=== PATIENT | male | born 1970 | race Caucasian/White ===

== ENCOUNTER 2020-11-29 14:39 | Inpatient (IN) | payer SELFPAY ==
[2020-11-29] VITALS (14 sets, daily range): BP systolic 111–148; BP diastolic 45–79; PULSE 58–75; RESP 15–25; TEMP 36.6–36.8; O2SAT 92–98; BMI 38.7
--- NOTE | 2020-11-29 14:48 | XR_ITS ---
WS: [id number] Exam: XR chest 1V portable [id number] Date/Time of Exam: 11/29/2020 2:48 PM Reason For Exam: CP No priors. The lungs are fully expanded and clear. Normal cardiomediastinal structures and bony elements. No ple ural effusions. Monitoring leads superimpose the chest. XR/XR chest 1V portable [id number] IMPRESSION: 1. No acute cardiopulmonary finding.
--- NOTE | 2020-11-29 14:48 | ECG_ITS ---
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
[2020-11-29 14:59] LABS: Basophils # 0.1 10^3/uL (0.0-0.1); Basophils % 1.2 %; Eosinophils # 0.4 10^3/uL (0.0-0.8); Eosinophils % 4.2 %; Hematocrit 44.4 % (42.0-52.0); Hemoglobin 15.4 g/dL (11.7-16.6); Lymphocytes # 3.1 10^3/uL (0.8-4.8); Lymphocytes % 29.7 %; Mean Corpuscular HGB Conc 34.7 g/dL (30.0-36.0); Mean Corpuscular Hemoglobin 29.8 pg (28.0-34.0); Mean Corpuscular Volume 85.9 fL (80-94); Mean Platelet Volume 10.2 fL (7.4-10.4); Monocytes % 9.5 %; Neutrophils # 5.66 10^3/uL (1.8-7.7); Neutrophils % 55.1 %; Nucleated Red Blood Cells % 0 %; Platelet Count 293 10^3/cmm (130-400); Red Blood Count 5.17 10^6/uL (4.1-5.3); Red Cell Distribution Width 12.9 % (12.1-15.1); White Blood Count 10.3 10^3/uL (4.0-10.0)
[2020-11-29] MEDS: nitroglycerin 1 gm/inch oint Pkt 1 INCH TOPICAL (15:28)
[2020-11-29 15:32] LABS: Troponin(5th) Baseline 17 ng/L (0-15)
[2020-11-29 16:24] LABS: Troponin 5 2HR 101.3 ng/L (0-15); Troponin 5 2HR Delta 84.3 ABS# (0-10)
[2020-11-29 16:29] LABS: Alanine Aminotransferase 22 U/L (0-41); Albumin Level 3.9 g/dL (3.5-5.2); Alkaline Phosphatase 55 IU/L (40-130); Aspartate Amino Transferase 20 U/L (0-40); Blood Urea Nitrogen 11 mg/dL (6-20); Calcium 8.5 mg/dL (8.5-10.5); Carbon Dioxide 22 mmol/L (22-29); Chloride 105 mmol/L (98-107); Globulin 2.6 g/dL (1.3-4.6); Glomerular Filtration Rate 103.2 mL/min (90-130); Glucose 94 mg/dL (65-115); Lipase 25 U/L (13-60); NT Pro B Type Natriuretic Pept 104 pg/mL (0-125); Osmolality Calculated 285 mOsm/kg (285-295); Sodium 138 mmol/L (136-145); Total Bilirubin 0.4 mg/dL (0.15-1.2); Total Protein 6.5 g/dL (6.6-8.7)
[2020-11-29 16:31] LABS: Anion Gap 14.7 (5-19); Potassium 3.7 mmol/L (3.5-5.1)
--- NOTE | 2020-11-29 16:48 | ECG_ITS ---
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: : 1970 Requested By: Stefania Clifton I Order Number: [id number] Reading MD: NIA MCCARTHY Measurements Intervals [place] Rate: 58 P: 53 MT: 174 QRS: 17 QRSD: 100 T: 25 QT: 394 QTc: 387 Interpretive Statements SINUS BRADYCARDIA NONSPECIFIC T-WAVE ABNORMALITY Compared to ECG 11/29/2020 14:41:02 T-wave abnormality now present Sinus rhythm no longer present Myocardial infarct finding no longer present Electronically Signed On 11-29-2020 21:24:43 CDT by NIA MCCARTHY [id number]
[2020-11-29] MEDS: ticagrelor 90 mg Tablet 180 MG PO (18:08)
[2020-11-29] MEDS: metoprolol succinate ER (24 HR) 25 mg Tablet 12.5 MG PO (18:09)
[2020-11-29] MEDS: atorvastatin 40 mg Tablet 80 MG PO (18:10)
[2020-11-29] MEDS: enoxaparin 120 mg/0.8 mL Syringe 110 MG SUBCUT (18:11)
--- NOTE | 2020-11-29 20:16 | PC.NURSE ---
PATIENT TRANSPORTED VIA WHEELCHAIR FROM ED AND ARRIVED AT 1999. PATIENT ABLE TO TRANSFER SELF TO BED WITH NO ASSISTANCE. PATIENT AND SIGNIFICANT OTHER ORIENTED TO ROOM.
--- NOTE | 2020-11-29 20:44 | P.HP_ITS ---
Providers/Chief Complaint Admitting Physician: Arnel Rodriguez Primary Care Provider: Thomas Estrada MD Chief Complaint: STEMI History of Present Illness Serge Singer is a 50 year old male past medical history significant for continuous tobacco abuse hard of hearing obesity apart from it, he does not have any other comorbidity, he was brought to ER after alerting STEMI pager. I looked at the EKG which was not convincing for ST elevation therefore STEMI was aborted. Patient cardiac markers troponin T came back > 70. He was ruled in for non-ST elevation NM. I have detailed discussion with the patient according to him for the past couple of days he was having off-and-on chest pain, today while lifting boxes all of a sudden it hit him badly when it does not subside he called EMS. Currently he is chest pain-free. He was given Lovenox and loaded with Brilinta aspirin and statin. I will also add beta-melissa. We will admit him to CSU. I am planning to proceed with left heart cath in the morning. Have detailed discussion with the patient regarding all risk benefit and already for the procedure. He understand the risk for major minor bleed urgent emergent b ypass surgery stroke arrhythmia and hematoma and infection. He would like to proceed with it. He denies any prior history of bleeding and contraindication for dual antiplatelet therapy. Medications/Allergies Home Medications Medication Instructions Recorded Confirmed Last Taken Type gabapentin 300 mg PO BEDTIME PRN 11/29/20 11/29/20 11/28/20 History Allergies Allergy/AdvReac Type Severity Reaction Status Date / Time No Known Allergies Allergy Verified 11/29/20 13:34 PFSH Acute PFSH: Social History (Updated 11/29/20 @ 14:52 by Tres Bradley RN) Smoking and tobacco status: current every day smoker cigarettes Packs smoked per day: 0.5 Alcohol intake: never Substance/Drug Use: current Substance/Drug use frequency: few times a month Substance/Drug use type: Marijuana Vitals/I&O/Wt Last Vital Signs Temp 97.8 F 11/29/20 14:43 Pulse 64 11/29/20 19:00 Resp 23 H 11/29/20 19:00 BP 129/72 11/29/20 19:00 Pulse Ox 98 11/29/20 19:00 Weight last 48 hrs Weight 240 lb Physical Exam Narrative: EXAM NARRATIVE: GENERAL: Patient is alert, awake and oriented x3. NECK: No jugular vein distension. HEENT: No cyanosis. No icterus. No pallor. HEART: Regular S1 and S2. No murmur, rub or gallop. LUNGS: Clear to auscultate bilaterally. ABDOMEN: Soft, nontender and nondistended. Positive bowel sounds. No guarding, rebound or tenderness. CENTRAL NERVOUS SYSTEM: Grossly nonfocal. EXTREMITIES: Lower extremities without edema bilaterally. Data : 11/29/20 13:36 11/29/20 15:36 A&P Assessment and plan (1) Non-ST elevation NM (NSTEMI): As above patient will be admitted to CSU will trend troponin. He will be monitored on the telemetry. We will treat him as per ACS protocol continue aspirin statin beta-melissa. He has been loaded with Brilinta. We will proceed with left heart cath in the morning Status: Acute (2) Tobacco abuse: Advised to quit smoking. Patient has not given me the answer. Status: Acute Attestations Medical Necessity Statement*: Patient require continuation hospitalization for above defined care. Coding Level of Care Code New Pt Acute Double Reamer Operator for Chg Fwd Patient Type New History Detailed Exam Detailed Medical Decision Making Moderate Complexity Diagnoses Non-ST elevation NM (NSTEMI) I21.4 Tobacco abuse Z72.0
--- NOTE | 2020-11-29 20:48 | ECG_ITS ---
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 Measurements Intervals [place] Rate: 58 P: 55 WA: 198 QRS: 18 QRSD: 96 T: 124 QT: 380 QTc: 376 Interpretive Statements SINUS BRADYCARDIA ST DEVIATION AND MODERATE T-WAVE ABNORMALITY, CONSIDER LATERAL ISCHEMIA [-0.1+ mV T WAVE IN I/aVL/V5/V6] Compared to ECG 11/29/2020 17:09:48 Possible ischemia now present T-wave abnormality still present Electronically Signed On 11-30-2020 17:49:33 CDT by Kavya Qureshi M.D. [id number]
[2020-11-30] VITALS (69 sets, daily range): BP systolic 109–172; BP diastolic 60–99; PULSE 58–86; RESP 13–35; TEMP 36.6–36.8; O2SAT 92–98
--- NOTE | 2020-11-30 00:29 | ED_ITS ---
HPI - Arrhythmia/Palpitations General: Chief Complaint: Arrhythmia/Palpitations Stated Complaint: STEMI Time Seen by Provider: 11/29/20 14:48 Source: patient, EMS and old records reviewed Mode of arrival: EMS Limitations: no limitations History of Present Illness: HPI narrative: This is a 50 year old male with no prior cardiac history and presents to the ED with chest pain from his PCP's office. He was lifting heavy materials and developed sudden onset of chest pain that did not initially resolve. He then went to his PCP's office and an EKG done was concerning for a STEMI and was sent to the ED to be evaluated. Chest pain was sudden, retrosternal and radiated to the left chest and shoulder. He was nauseous, SOB, and diaphoretic. He was given 2 nitroglycerin tablets and heparin bolus in the ambulance. He is currently chest pain free. He was called a STEMI alert in the clinic but on arrival to the ED, the elevations have resolved. Duration: now resolved Context: occurred during exertion Associated symptoms: Reports nausea and short of breath; Deny anxiety, cough, diaphoresis, muscle cramps, paresthesias, pre-syncope, sense of impending doom, syncope or vomiting Review of Systems General: Reports: 10 or more systems reviewed and unremarkable except in HPI and below Const: Denies: diaphoresis Card: Denies: syncope or pre-syncope GI: Reports: nausea; Denies: vomiting Musc: Denies: muscle cramps Psych: Denies: anxiety [facility] ED PFSH: Medical History (Updated 12/16/20 @ 09:07 by Stefania Clifton MD, [facility] Coronary artery disease Hypertension NSTEMI (non-ST elevated myocardial infarction) Family History Father Diabetes Stroke Family history of premature coronary artery disease Brother Family history of premature coronary artery disease Unknown Family history of premature coronary artery disease Mother Cancer Other CAD (coronary artery disease) Social History Smoking and tobacco status: current every day smoker cigarettes Packs smoked per day: 0.5 Alcohol intake: never Physical Exam Const: COMMON NORMALS: no acute distress, average body habitus, patient oriented x3, no limitations, healthy appearing, alert and well nourished HENMT: COMMON NORMALS: normocephalic, atraumatic and moist oral mucous membranes HEAD & SCALP: normocephalic and atraumatic Neck/C-Spine: COMMON NORMALS: no meningeal signs and no JVD Chest: COMMONS NORMALS: normal inspection of the chest and normal palpation of entire chest wall Resp: COMMON NORMALS: normal respiratory effort, No retractions, No use of accessory muscles, clear to auscultation bilaterally and percussion normal AUSCULTATION: clear to auscultation bilaterally PERCUSSION: percussion normal Cardio: COMMON NORMALS: no JVD, regular rate, regular rhythm, S1 normal heart sound present, S2 normal heart sound present, No gallops present (Cardio), No clicks present (Cardio), No murmurs present (Cardio), No rub (Cardio) and Peripheral pulses 2+ throughout RATE: regular rate RHYTHM: regular rhythm HEART SOUNDS: S1 normal heart sound present and S2 normal heart sound present PERIPHERAL PULSES: Peripheral pulses 2+ throughout GI: COMMON NORMALS: Normal to inspection, nondistended, normoactive bowel sounds present, Soft to palpation, non-tender, No hepatosplenomegaly present, no masses and no bruits PALPATION: Yes Soft to palpation and Yes No hepatosplenomegaly present Neuro: COMMON NORMALS: patient oriented x3 SENSORIUM/ORIENTATION: Yes alert MENINGEAL SIGNS: Yes no meningeal signs Course Consultations: Consultation #1: Discussed the patient with Dr. Rodriguez, hospitalist and he kindly accepted patient to his service. Time: 17:11 Consultation #2: Discussed the patient with Dr. Crandall, pelletizer. He agrees that this is not a STEMI on EKG and should be managed as a case of non STEMI and should be given ASA, lovenox, artovastatin, metoprolol. He called back later and said that since this is a primary cardiac issue he will admit the patient and the hospitalist does not need to admit him Time: 17:00 Vital Signs: Vital signs: Vital Signs Temperature 97.7 F 12/01/20 16:23 Pulse Rate 79 12/01/20 16:23 Respiratory Rate 17 12/01/20 16:23 Blood Pressure 154/91 12/01/20 16:23 Pulse Oximetry 99 12/01/20 16:23 MDM - Arrhythmia/Palpitations MDM Narrative: Medical decision making narrative: 50 year old male who was brought to the ED with concerns for a STEMI. He developed sudden onset chest pain, diaphoresis, SOB. In the ED a STEMI was ruled out. However he had significantly elevated high sensitivity troponin with a significant delta and is managed as a case of NSTEMI and will be admitted to the hospital under the care of the pelletizer. Medical Records: Attestation: I reviewed the patient's medical records. Lab Data: Attestation: I reviewed the patient's lab results. Labs: Lab Results 11/29/20 11/29/20 11/29/20 Range/Units 13:36 13:36 13:36 WBC 10.3 H (4.0-10.0) 10^3/ uL RBC 5.17 (4.1-5.3) 10^6/u L Hgb 15.4 (11.7-16.6) g/dL Hct 44.4 (42.0-52.0) % MCV 85.9 (80-94) fL MCH 29.8 (28.0-34.0) pg MCHC 34.7 (30.0-36.0) g/dL RDW 12.9 (12.1-15.1) % Plt Count 293 (130-400) 10^3/c mm MPV 10.2 (7.4-10.4) fL Neut % (Auto) 55.1 % Lymph % (Auto) 29.7 % [place] % (Auto) 9.5 % Eos % (Auto) 4.2 % Baso % (Auto) 1.2 % Neut # (Auto) 5.66 (1.8-7.7) 10^3/u L Lymph # (Auto) 3.1 (0.8-4.8) 10^3/u L [place] # (Auto) 1.0 H (0.2-0.9) 10^3/u L Eos # (Auto) 0.4 (0.0-0.8) 10^3/u L Baso # (Auto) 0.1 (0.0-0.1) 10^3/u L Nucleated RBC % (a uto) 0 % Nucleated RBCs # 0.0 /100WBC Sodium Cancelled Potassium Cancelled Chloride Cancelled Carbon Dioxide Cancelled Anion Gap Cancelled BUN Cancelled Creatinine Cancelled GFR Calculation Cancelled Glucose Cancelled Calculated Osmolal ity Cancelled Calcium Cancelled Total Bilirubin Cancelled AST Cancelled ALT Cancelled Alkaline Phosphata se Cancelled Troponin T Baselin e 17 H (0-15) ng/L Troponin T 120 Min [place] (0-15) ng/L Delta Troponin T (0-10) ABS# NT-Pro-B Natriuret Pep Cancelled Total Protein Cancelled Albumin Cancelled Globulin Cancelled Lipase Cancelled 11/29/20 11/29/20 Range/Units 15:36 15:36 WBC (4.0-10.0) 10^3/ uL RBC (4.1-5.3) 10^6/u L Hgb (11.7-16.6) g/dL Hct (42.0-52.0) % MCV (80-94) fL MCH (28.0-34.0) pg MCHC (30.0-36.0) g/dL RDW (12.1-15.1) % Plt Count (130-400) 10^3/c mm MPV (7.4-10.4) fL Neut % (Auto) % Lymph % (Auto) % [place] % (Auto) % Eos % (Auto) % Baso % (Auto) % Neut # (Auto) (1.8-7.7) 10^3/u L Lymph # (Auto) (0.8-4.8) 10^3/u L [place] # (Auto) (0.2-0.9) 10^3/u L Eos # (Auto) (0.0-0.8) 10^3/u L Baso # (Auto) (0.0-0.1) 10^3/u L Nucleated RBC % (a uto) % Nucleated RBCs # /100WBC Sodium 138 Potassium 3.7 Chloride 105 Carbon Dioxide 22 Anion Gap 14.7 BUN 11 Creatinine 0.8 GFR Calculation 103.2 Glucose 94 Calculated Osmolal ity 285 Calcium 8.5 Total Bilirubin 0.4 AST 20 ALT 22 Alkaline Phosphata se 55 Troponin T Baselin e (0-15) ng/L Troponin T 120 Min [place] 101.3 H (0-15) ng/L Delta Troponin T 84.3 H* (0-10) ABS# NT-Pro-B Natriuret Pep 104 Total Protein 6.5 L Albumin 3.9 Globulin 2.6 Lipase 25 Imaging Data^: CXR: Attestation: I personally reviewed and interpreted this imaging study as follows: Radiologist's impression: [id number] [place], [place] [id number] ReportSigned Patient: Stephanie Singer #: [id number]: 1970Acct#:[id number]/Sex: 50 / MADM Date: 11/29/20Loc: ERRoom/Bed:Attending Dr: Ordering Provider/Ordering MD: Stefania Clifton MD, [facility] Date of Service: 11/29/20 Procedure(s): XR chest 1V portable [id number] Accession Number(s): [id number] Report Number: [id number] WS: [id number] Exam: XR chest 1V portable [id number] Date/Time of Exam: 11/29/2020 2:48 PM Reason For Exam: CP No priors. The lungs are fully expanded and clear. Normal cardiomediastinal structures and bony elements. No pleural effusions. Monitoring leads superimpose the chest. XR/XR chest 1V portable [id number] IMPRESSION: 1. No acute cardiopulmonary finding. Dictated By:Mila Raphael By:Mila Raphael Date/Time:11/29/20 1510DD/ 1509 EKG Data^: EKG 1: Attestation: I personally reviewed and interpreted this EKG as follows: EKG interpretation date: 11/29/20 EKG interpretation time: 17:09 Prior EKG tracings: not available for review Interpretation: sinus bradycardia HR 58 bpm normal axis no ST changes. Other EKG comments: Chest X-Ray 11/29/20 14:48 IMPRESSION: 1. No acute cardiopulmonary finding. EKG 2: EKG interpretation date: 11/29/20 EKG interpretation time: 22:01 Interpretation: sinus bradycardia HR [address] changes No significant changes from earlier. Other EKG comments: Chest X-Ray 11/29/20 14:48 IMPRESSION: 1. No acute cardiopulmonary finding. Discharge Plan Discharge Patient Disposition: Admitted As Inpatient Admit Provider: Modesta Crandall Clinical Impression: Non-ST elevated myocardial infarction (non-STEMI) Condition: Stable Discharge Diet: Cardiac Coding Level of Care Code ED Reference Investigator for Mario Cazares
[2020-11-30] MEDS: diphenhydrAMINE 25 mg Capsule 50 MG PO (05:02)
[2020-11-30] MEDS: sodium chloride 0.9% 1,000 ML 50 ML IV (05:02)
--- NOTE | 2020-11-30 05:07 | XACV_ITS ---
Exam Room: [facility] [place] Ht: 168 cm Wt: 109 kg BSA: 2.30 m2 Gender: Male : 1970 Any Known Allergies: No known allergies Exam Priority: Routine Procedure(s): Procedure Description: Diagnostic procedure Procedure Description: PCI procedure Procedure Description: Drug Eluting Coronary Stent Procedure Description: PTCA Procedure Description: Miscellaneous Procedure Description: ACT Procedure Description: Coronary Angiography Diagnostic Findings * LM has 0% stenosis. * CX has 0% stenosis. * RCA has 0% stenosis. * Proximal Left Anterior Descending Coronary Artery: Severe 90% stenosis, ЕКАТЕРИНА: 3 flow. * mLAD: Moderate 50% stenosis, ЕКАТЕРИНА: 3 flow. * 1st Diagonal Coronary Artery: Severe 90% stenosis, ЕКАТЕРИНА: 3 flow. * First Obtuse Marginal Branch Segment: Severe 75% stenosis, ЕКАТЕРИНА: 3 flow. * Coronary angiography shows right dominance. Interventional Findings * Proximal Left Anterior Descending Coronary Artery: 90% stenosis treated with MDT R GODWIN 3.0X18 ОЛЬГА and MDT NC EUPHORA RX 3.91W89TB BALLOON. 0% residual stenosis, ЕКАТЕРИНА: 3 flow. * 1st Diagonal Coronary Artery: 90% stenosis treated with AB TREK 2.50X12 RX BALLOON. 20% residual stenosis, ЕКАТЕРИНА: 3 flow. * First Obtuse Marginal Branch Segment: 75% stenosis treated with MDT R GODWIN 2.0X15 ОЛЬГА. 0% residual stenosis, ЕКАТЕРИНА: 3 flow. Conclusions 1. There is severe coronary artery disease with one vessel disease. 2. Proximal Left Anterior Descending Coronary Artery was treated with Drug Eluting Stent and Balloon. 3. 1st Diagonal Coronary Artery was treated with Balloon. 4. First Obtuse Marginal Branch Segment was treated with Drug Eluting Stent. Recommendations * Continue current medical management and risk factor modification. Pressures Phase:Rest AO : 118 / 89 ( 104 ) @ 5:53:00 AM 147 / 72 ( 101 ) @ 5:56:00 AM Clinical Evaluation EBL: 5mL-10mL Procedural Details Pre-Procedure Time Out. Identified patient by full name and date of as verbalized by the patient/guarantor. Does the consent match the physician's order: Yes. Accurate & Complete Informed Consent: Yes. Inpatient/Outpatient History & Physical on Chart: Yes. If H&P is completed, is and addenduem needed: Yes; If yes, is the addendum complete: N/A. Visualize and Verify Site with Patient/Guarantor: N/A. Relevant Radiology Images available: Yes. Pre-op teaching completed and patient verbalized understanding. The risks, benefits, and alternatives of sedation and/or procedure were discussed by physician. The patient agrees to continue. Procedure started. Correct patient, site and procedure confirmed by cath team. PERRLA. Strong, equal hand finish molder bilaterally. Lungs clear x 5 lobes. IV Site on Arrival: 18 gauge in the left anticubital. IV Site on Arrival: 20 gauge in the right hand. IV Fluids: 0.9% NaCl at KVO. 0 mL infused prior to laboratory mechanical technician. Pre Procedural Pulses: right dorsalis pedis was 3+. Pre Procedural Pulses: left dorsalis pedis was 3+. Pre Procedural Pulses: bilateral posterior tibial was 3+. Pre Procedural Pulses: bilateral radial was 3+. Oxygen started at 2liters/min via nasal canula. right groin was prepped with chloroprep then draped in the usual sterile fashion. right radial was prepped with chloroprep then draped in the usual sterile fashion. Baseline sample Acquired. HR: 71 BPM. Physician notified. Equipment: 6F - Radial. Cardiac Cath Pack. ACIST Manifold Kit Model BT 2000. Heparinized Saline (2 units/mL), 1000 mL bag. Physician arrived. Physician scrubbed in. Immediate Pre-Procedure Time Out. Correct Patient: Yes; Correct Procedure: Yes; Correct Site: Yes; Correct Patient Position: Yes; Correct Supplies: Yes; Dried Flammable Prep: Yes; Blood Products Available: N/A;. Lidocaine 1% infiltrated to the right radial. Arterial access obtained. A 5 bahraini TIG catheter in over wire. Multiple views taken of right coronary artery. Catheter redirected to the LCA. Multiple views taken of left coronary artery. Catheter out. Inventory is CRD 6 FR XB 3.5 GUIDE. 6 bahraini XB 3.5 guide catheter was inserted over the wire. [place] guidewire was advanced through the guide catheter to lesion in the prox LAD. Inventory is Satellogic [place] XT .014 190cm Str. Guidewire. [place] guidewire was advanced through the guide catheter to lesion in the diaganol. Balloon inserted to lesion in the diaganol. Inflation number : 1 A TREK 2.50X12 RX BALLOON was prepped and advanced across the 1st Diag , then inflated to 16 RICKY for 0:10 seconds. Balloon out. GWEN Maki was relieved by Pawel Varma RRT as monitoring person. Inflation Number : 1 A NARCISA Rodriguez GODWIN 3.0X18 ОЛЬГА -Lot Number# [id number] exp date 08/19/2022 was prepped and advanced across the Prox LAD. The stent was deployed at 16 RICKY for 0:22 seconds. Stent balloon out over wire. Wire from diagonal removed. ACT drawn. Results 197 seconds. Therapeutic limits - pre-heparin administration 90-150 seconds and monitoring heparin during a vascular procedure >250 seconds. Inflation number : 2 A NARCISA WALTER EUPHORA RX 3.71D81VO BALLOON was prepped and advanced across the Prox LAD , then inflated to 16 RICKY for 0:18 seconds. Balloon out. Results checked. [place] repositioned to mid Circ. Inflation Number : 1 A NARCISA Rodriguez GODWIN 2.0X15 ОЛЬГА -Lot Number# [id number] exp date 08/19/2022 was prepped and advanced across the 1st Ob Zakiya. The stent was deployed at 14 RICKY for 0:19 seconds. Inflation number: 2 The stent balloon was then re-inflated across the 1st Ob Zakiya to 18 RICKY for 0:15 seconds. Stent balloon out over wire. Results checked. Wire out. Guide catheter out. ACT drawn. Results 276 seconds. Therapeutic limits - pre-heparin administration 90-150 seconds and monitoring heparin during a vascular procedure >250 seconds. Physician scrubbed out. A TR Band was successful obtaining hemostatsis at the Right Radial artery insertion site. TR band placed. Hemostasis obtained. Post Procedure: Pulses reassessed and unchanged. PERRLA. Strong, equal hand finish molder bilaterally. No VTE prophylaxis required. Contrast type used: Omnipaque 300 mgI/mL, 500 mL bottle. PCI Indication: NSTE. Post-op diagnosis: NSTEMI. Complications: none. Medication's Wasted: Lidocaine 1% = 15 mL. Medication's Wasted: Nitro = 49.8 mg. Medication's Wasted: Heparin = 1000 units. Total IV fluids: 78 mL. Estimated blood loss: 5mL-10mL. Procedure completed. Patient transferred by wheelchair to 1st floor. Access Site Site: Right Radial artery Sheath Size: 6 Fr Hemostasis Method: TR Band Hemostasis Success: Successful Procedure Medications Start: 6:08 AM Stop: 6:08 AM Medication: Versed Amount: 1 mg Route: I.V. Start: 6:08 AM Stop: 6:08 AM Medication: Fentanyl Amount: 50 mcg Route: I.V. Start: 6:21 AM Stop: 6:21 AM Medication: Versed Amount: 1 mg Route: I.V. Start: 6:21 AM Stop: 6:21 AM Medication: Fentanyl Amount: 50 mcg Route: I.V. Start: 6:23 AM Stop: 6:23 AM Medication: Nitrogylcerin Amount: 200 mcg Route: I.A. Start: 6:26 AM Stop: 6:26 AM Medication: Heparin Amount: 5000 units Route: I.V. Start: 6:34 AM Stop: 6:34 AM Medication: Heparin Amount: 2000 units Route: I.V. Start: 6:57 AM Stop: 6:57 AM Medication: Heparin Amount: 3000 units Route: I.V. I, the attending physician, have reviewed and verified all procedure medications. Yes, all medications given per verbal order History/Risk Factors Hypertension: No Dyslipidemia: No Peripheral Arterial Disease (PAD): No Myocardial Infarction (MO): No Obesity: No Renal Disease: No Tobacco Use: Current/Recent(w/in 1 year) Prior Interventions PCI: No CABG: No Valve Surgery: No Report Signatures Finalized by Modesta Crandall MD on 12/12/2020 06:40 PM
--- NOTE | 2020-11-30 05:18 | PC.NURSE ---
PRE-OP PREP PATIENT PREPARED FOR CARDIAC CATHETERIZATION PER PROTOCOL. FINAL QUESTIONS ANSWERED AND PATIENT STATES HE UNDERSTANDS AND DENIES ANY FURTHER QUESTIONS.
--- NOTE | 2020-11-30 07:13 | W.PM.OPSUD ---
Surgery/Procedure H&P Update DATE OF PROCEDURE: November 30, 2020 DATE H&P PERFORMED: 11/29/20 H&P UPDATE INFORMATION: I have reviewed H&P completed within last 30 days, I have examined patient prior to procedure and No changes to prior documentation PREOP DIAGNOSIS: NSTEMI PLANNED PROCEDURE: Operation Date: 11/30/20 06:00 Proposed Procedures p Cardiac Catheterization(Not Applicable) - Modesta Crandall MD PATIENT REASSESSED PRIOR TO SEDATION, WITH NO CHANGE NOTED: Yes PHYSICAL EXAM: alert, oriented x 3, clear to auscultation bilaterally and regular rate & rhythm AIRWAY EVAL/ANESTHESIA PLAN: ASA II, Risks, benefits & alternatives of sedation and/or procedure discussed and Patient agrees to continue as planned
--- NOTE | 2020-11-30 12:16 | USCV_ITS ---
Serge Singer Age: 50 Gender: M : 1970 Exam Date: 11/30/2020 08:52 Ordering Phys: Modesta Crandall MD ([email or web address]) Technologist: Veena Rogers [place] [facility] [place]: [place]STEMI BP: 135 / 86 HR: 65 Rhythm: Sinus Technical Quality: Fair MEASUREMENTS (Male / Female) Normal Values 2D ECHO LV Diastolic Diameter PLAX 2.7 cm 4.2 - 5.9 / 3.9 - 5.3 cm LV Systolic Diameter PLAX 1.7 cm LV Chamber Size 3.4 cm IVS Diastolic Thickness 1.6 cm 0.6 - 1.0 / 0.6 - 0.9 cm IVS Systolic Thickness 2.3 cm LVPW Diastolic Thickness 2.4 cm 0.6 - 1.0 / 0.6 - 0.9 cm LVPW Systolic Thickness 2.5 cm RV Chamber Size 3.5 cm LVOT Diameter 2.0 cm LV Ejection Fraction 2D Teich 68.2 % LV Ejection Fraction MOD 2C 55.7 % LV Ejection Fraction 2C AL 56.9 % LA Diameter 3.0 cm LA Width 3.4 cm LA Height 3.5 cm RA Width 3.4 cm RA Height 4.2 cm Aorta at Sinotubular Diameter 3.0 cm M-MODE LV Diastolic Diameter MM 4.0 cm 4.2 - 5.9 / 3.9 - 5.3 cm LV Systolic Diameter MM 2.1 cm LV Ejection Fraction MM Teich 78.3 % IVS Diastolic Thickness MM 0.9 cm 0.6 - 1.0 / 0.6 - 0.9 cm IVS Systolic Thickness MM 1.5 cm LVPW Diastolic Thickness MM 1.1 cm 0.6 - 1.0 / 0.6 - 0.9 cm LVPW Systolic Thickness MM 1.6 cm Aortic Annulus Diameter 3.1 cm LA Ao Ratio MM 1.0 MV E Point Septal Separation 0.6 cm DOPPLER AV Peak Velocity 148.7 cm/s LVOT Peak Velocity 115.0 cm/s AV Area Cont Eq vti 3.2 cm squared AV Area Cont Eq pk 2.5 cm squared MV Area PHT 3.0 cm squared Mitral E to A Ratio 0.9 MV E' Velocity 41.0 cm/s Mitral E to MV E' Ratio 6.3 Mitral E to LV E' Lateral Ratio 5.7 Mitral E to LV E' Septal Ratio 7.2 TR Peak Velocity 144.0 cm/s TR Peak Gradient 8.3 mmHg TV Peak E Velocity 64.0 cm/s Right Atrial Pressure 3.0 mmHg Pulmonary Artery Systolic Pressu 11.3 mmHg PV Peak Velocity 82.0 cm/s RV Acceleration Time 0.1 s RV Ejection Time 0.4 s RV AcT/ET 0.3 FINDINGS Left Ventricle Normal left ventricular cavity size. Normal left ventricular systolic function. No regional wall motion abnormalities. Left ventricular ejection fraction is estimated at 60 %. Grade I/IV diastolic dysfunction (abnormal relaxation filling pattern), normal to mildly elevated filling pressures. Right Ventricle The right ventricle is normal in size and function. Right Atrium The right atrium is normal in size. Left Atrium The left atrium is normal in size. Mitral Valve Structurally normal mitral valve without significant stenosis or prolapse. There is no mitral regurgitation. Aortic Valve Structurally normal aortic valve without significant sclerosis or stenosis. There is no aortic regurgitation. Tricuspid Valve Structurally normal tricuspid valve without significant stenosis or regurgitation. Pulmonary artery systolic pressure is normal. Pulmonic Valve Structurally normal pulmonic valve without significant stenosis. There is no pulmonic regurgitation. Pericardium Normal pericardium without effusion. Aorta Normal ascending aorta dimension. CONCLUSIONS 1-Normal left ventricular cavity size. Normal left ventricular systolic function. No regional wall motion abnormalities. Left ventricular ejection fraction is estimated at 60 %. Grade I/IV diastolic dysfunction (abnormal relaxation filling pattern), normal to mildly elevated filling pressures. 2-No significant valve abnormalities. 3-There is no pericardial effusion. 4-Pulmonary artery systolic pressure is within normal limits. 5-Right atrial pressure is around 5 mm of mercury. 6-There are no prior echocardiogram studies to compare. Modesta Crandall MD (Electronically Signed) Final Date: 11 Dec 2020 18:10 S
--- NOTE | 2020-11-30 12:22 | PC.NURSE ---
At 10 am patient was fully awake and alert. Began removing air from TR band 3 ml every 15 minutes unyil all 16 ml were removed. No oozing was noted. After removal site was cleaned with alcohol swabs and dressed with a 2x2 gauze and clear rop dressing.l
[2020-11-30] MEDS: ticagrelor 90 mg Tablet PO ×2 (13:59→18:05)
[2020-11-30] MEDS: temazepam 15 mg Capsule PO (20:40)
--- NOTE | 2020-11-30 20:42 | PC.NURSE ---
Upon bedside report, there are no IV fluids running.
--- NOTE | 2020-11-30 21:26 | PM.PN ---
Subjective Subjective: Interval history: S/p mid LAD PCI for bifurcating lesion. Ostial moderate size and caliber diagonal branch was dilated with balloon angioplasty followed by mid LAD stent placement. Stent was postdilated with noncompliant balloon. Obtuse marginal branch was also treated with single drug-eluting stent for mid significant 80% stenosis. Patient tolerated procedure well and transferred to CSU. Vitals/I&O/Wt Last Vital Signs Temp 98 F 11/30/20 19:23 Pulse 71 11/30/20 19:23 Resp 21 H 11/30/20 19:23 BP 138/94 11/30/20 19:23 Pulse Ox 98 11/30/20 19:23 11/30/20 11/30/20 11/30/20 06:59 14:59 22:59 Intake Total 740 / 740 480 / 1220 Output Total 420 / 420 Balance 320 / 320 480 / 800 Weight last 48 hrs Weight 240 lb Physical Exam Narrative: EXAM NARRATIVE: GENERAL: Patient is alert, awake and oriented x3. NECK: No jugular vein distension. HEENT: No cyanosis. No icterus. No pallor. HEART: Regular S1 and S2. No murmur, rub or gallop. LUNGS: Clear to auscultate bilaterally. ABDOMEN: Soft, nontender and nondistended. Positive bowel sounds. No guarding, rebound or tenderness. CENTRAL NERVOUS SYSTEM: Grossly nonfocal. EXTREMITIES: Lower extremities without edema bilaterally. Const: COMMON NORMALS: alert Resp: COMMON NORMALS: clear to auscultation bilaterally AUSCULTATION: clear to auscultation bilaterally Neuro: SENSORIUM/ORIENTATION: Yes alert Data : 11/29/20 13:36 11/29/20 15:36 A&P Assessment and plan (1) Non-ST elevation AR (NSTEMI): Status post PCI to mid LAD and obtuse marginal continue aspirin statin Brilinta beta-melissa Echo pending pending further plan will advise as per progress of the Status: Acute (2) Tobacco abuse: Advised to quit smoking. Patient has not given me the answer. 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
[2020-12-01] VITALS (9 sets, daily range): BP systolic 154–169; BP diastolic 69–92; PULSE 58–79; RESP 12–26; TEMP 36.5–36.6; O2SAT 96–99
[2020-12-01 04:49] LABS: Basophils # 0.1 10^3/uL (0.0-0.1); Basophils % 0.8 %; Eosinophils # 0.5 10^3/uL (0.0-0.8); Eosinophils % 4.5 %; Hematocrit 45.9 % (42.0-52.0); Hemoglobin 15.8 g/dL (11.7-16.6); Lymphocytes # 2.2 10^3/uL (0.8-4.8); Lymphocytes % 18.7 %; Mean Corpuscular HGB Conc 34.4 g/dL (30.0-36.0); Mean Corpuscular Hemoglobin 30.3 pg (28.0-34.0); Mean Corpuscular Volume 88.1 fL (80-94); Mean Platelet Volume 9.5 fL (7.4-10.4); Monocytes # 1.1 10^3/uL (0.2-0.9); Neutrophils # 7.96 10^3/uL (1.8-7.7); Neutrophils % 66.6 %; Nucleated Red Blood Cells % 0 %; Platelet Count 272 10^3/cmm (130-400); Red Blood Count 5.21 10^6/uL (4.1-5.3); Red Cell Distribution Width 12.9 % (12.1-15.1)
[2020-12-01 05:05] LABS: Anion Gap 12.7 (5-19); Blood Urea Nitrogen 12 mg/dL (6-20); Calcium 8.8 mg/dL (8.5-10.5); Carbon Dioxide 26 mmol/L (22-29); Chloride 104 mmol/L (98-107); Glomerular Filtration Rate 103.2 mL/min (90-130); Glucose 95 mg/dL (65-115); Osmolality Calculated 288 mOsm/kg (285-295); Potassium 3.7 mmol/L (3.5-5.1); Sodium 139 mmol/L (136-145)
--- NOTE | 2020-12-01 08:25 | PC.CHAP ---
Pastoral Care Encounter/Spiritual Assessment Type of Contact [] Declined keeper head visit [] Patient/Family/Request visit [] Outpatient visit [] Follow-up visit [] Physician referral [] Code/Alert [x] Routine visit [] Staff referral [] Actively dying [] Patient sleeping [] Family support [] [] Out of room [] Palliative care [] [] Receiving care in room [] Pre-surgical visit [] Trauma [] Long length of stay [] ICU visit [] Other: Relational/Emotional Strength [x] Patient feels connected with others/family/visitors/staff [] Distress [] Loneliness/isolation [] Abandonment Spirituality of Patient [x] Person of A[place] [x] Attends Spiritism of their [place] [x] Believes in Prayer [] Reads Bible or Confucianist materials [] There are Spiritual issues to be addressed Industrial Engineering Intern Interventions [x] Prayer [x] Active listening [x] Non-anxious presence [x] Spiritual/emotional support [] Crisis/trauma care [] Spiritual counseling [] Bereavement support [] Provided bereavement packet [] Provided Bible/devotional materials [] Provided toy/stuffed animal, coloring book to patient or family member [] Provided Communion [] Anointing/[place] [] Salvation [x] Completed spiritual assessment [] Other: Impact on Illness or Injury [] Angry [] Fearful [] Anxious [] Often cries [] Exhaustion [] Unable to work [] Unable to attend gnosticist [] Unable to walk/stand [] Unable to read [] Unable to drive [] Unable to eat/drink [] Unable to sleep [] Unable to be with family [] Patient intubated [] Other: Summary Pt's SO called several times while keeper head visited. Pt hopes to be released today but doctor is trying some new meds so uncertain. He is a person of ainsley and requested prayer. Time spent with patient 10m
--- NOTE | 2020-12-01 08:28 | PC.NURSE ---
Received orders from Dr. Crandall to stop brillinta and give plavix 600mg ONCE
[2020-12-01] MEDS: clopidogrel 300 mg Tablet 600 MG PO (09:31)
--- NOTE | 2020-12-01 11:45 | P.DS_ITS ---
Discharge Providers Date of Admission: 11/29/20 17:20 Date of Discharge: December 01, 2020 Attending Provider at Admission: Modesta Crandall MD Attending Provider at Discharge: Modesta Crandall MD Primary Care Provider: Thomas Estrada MD Diagnoses at Discharge Discharge Diagnosis (1) Non-ST elevation UT (NSTEMI): Status: Resolved (2) Tobacco abuse: Status: Acute Reason for Visit Reason for Visit: STEMI Hospital Course Hospital Course 50-year-old male admitted with non-ST elevation UT underwent angiogram found to have significant LAD and bifurcating diagonal disease along with obtuse marginal. LAD and obtuse marginal were treated with drug-eluting stent post PCI patient was observed in the CSU. His medicine were optimized echocardiogram showed normal ejection fraction around 60%. He was loaded with Brilinta. His medicine include aspirin statin beta-melissa and PAT inhibitor. According to patient he cannot afford Brilinta so he was switched after loading with 600 mg of Plavix to 75 mg of Plavix daily Physical Exam Narrative: EXAM NARRATIVE: GENERAL: Patient is alert, awake and oriented x3. NECK: No jugular vein distension. HEENT: No cyanosis. No icterus. No pallor. HEART: Regular S1 and S2. No murmur, rub or gallop. LUNGS: Clear to auscultate bilaterally. ABDOMEN: Soft, nontender and nondistended. Positive bowel sounds. No guarding, rebound or tenderness. CENTRAL NERVOUS SYSTEM: Grossly nonfocal. EXTREMITIES: Lower extremities without edema bilaterally. Const: COMMON NORMALS: alert Resp: COMMON NORMALS: clear to auscultation bilaterally AUSCULTATION: clear to auscultation bilaterally Neuro: SENSORIUM/ORIENTATION: Yes alert Discharge Data Data Completed and Pending: Completed Studies During Hospitalization Category Date Time Status XR chest 1V rebecca ble [id number] Stat Exams 11/29/20 14:48 Completed Pending at discharge Category Date Time Status [facility] request for service Routin e Exams 11/30/20 05:07 Taken CV echo complete* [id number] Routine Ultrasound 11/30/20 12:16 Taken Labs from last 24 hours 12/01/20 12/01/20 04:01 04:01 WBC 12.0 H RBC 5.21 Hgb 15.8 Hct 45.9 MCV 88.1 MCH 30.3 MCHC 34.4 RDW 12.9 Plt Count 272 MPV 9.5 Neut % (Auto) 66.6 Lymph % (Auto) 18.7 [place] % (Auto) 9.0 Eos % (Auto) 4.5 Baso % (Auto) 0.8 Neut # (Auto) 7.96 H Lymph # (Auto) 2.2 [place] # (Auto) 1.1 H Eos # (Auto) 0.5 Baso # (Auto) 0.1 Nucleated RBC % (a uto) 0 Nucleated RBCs # 0.0 Sodium 139 Potassium 3.7 Chloride 104 Carbon Dioxide 26 Anion Gap 12.7 BUN 12 Creatinine 0.8 GFR Calculation 103.2 Glucose 95 Calculated Osmolal ity 288 Calcium 8.8 Vitals: Last Vital Signs Temp 97.7 F 12/01/20 07:07 Pulse 79 12/01/20 07:07 Resp 17 12/01/20 07:07 BP 154/91 12/01/20 07:07 Pulse Ox 99 12/01/20 07:07 Discharge Plan Discharge Patient Disposition: Home Condition: Stable Prescriptions: New aspirin [Adult Aspirin Regimen] 81 mg tablet,delayed release (DR/EC) 81 mg PO DAILY Qty: 90 RF: 3 atorvastatin 40 mg tablet 40 mg PO DAILY Qty: 30 RF: 3 clopidogrel 75 mg tablet 75 mg PO DAILY Qty: 90 RF: 4 lisinopril 2.5 mg tablet 2.5 mg PO DAILY Qty: 30 RF: 3 metoprolol succinate 25 mg capsule,sprinkle,ER 24hr 25 mg PO DAILY Qty: 30 RF: 3 No Action atorvastatin 40 mg tablet 40 mg PO DAILY RF: 0 clopidogrel 75 mg tablet 75 mg PO DAILY RF: 0 aspirin 81 mg tablet,delayed release (DR/EC) 81 mg PO DAILY RF: 0 metoprolol succinate 25 mg tablet extended release 24 hr 50 mg PO DAILY RF: 0 lisinopril 2.5 mg tablet 2.5 mg PO DAILY RF: 0 gabapentin 300 mg Capsule 300 mg PO BEDTIME PRN (Reason: pain) RF: 0 Discharge Orders: Discharge Order (Routine); Ordered 12/01/20 Ordered By: Modesta Crandall Referrals: Modesta Crandall MD [Physician] - 6 Weeks (YOU HAVE A FOLLOW UP APPOINTMENT WITH DR. CRANDALL ON SundayJanuary AT 330PM. IF YOU HAVE ANY QUESTIONS OR NEED TO RESCHEDULE PLEASE CALL [phone].) Laura Adams, ALVA [Nurse Practitioner] - 7-10 days (YOU HAVE A FOLLOW UP APPOINTMENT WITH LAURA ON SundayDecember AT 0995. IF YOU HAVE ANY QUESTIONS OR NEED TO RESCHEDULE PLEASE CALL [phone] ) Discharge Diet: Cardiac Patient Instructions: Metoprolol (By mouth), Lisinopril (By mouth), Aspirin (By mouth), Atorvastatin (By mouth), Clopidogrel (By mouth), Myocardial Infarction (DC), Post Angiogram Home Care Instructions, Post Heart Attack Stoplight Activity Restrictions/Additional Instructions: Please continue taking clopidogrel and aspirin for at least 1 year after that we will reassess it. Follow-up with Ms. Laura Adams cardiology nurse practitioner in 7 days, follow-up with Dr. Crandall in 6 to 8 weeks Discharge Attestations Time Spent in Discharge Care*: greater than 30 min Specific Discharge Activities: educating patient Quality Metrics Clinical Quality Measures During this hospital stay, did patient experience: None Coding Level of Care Code Established Pt Acute Chg FW DC note Patient Type Established History Detailed Exam Detailed Medical Decision Making Moderate Complexity Diagnoses Non-ST elevation UT (NSTEMI) I21.4 Tobacco abuse Z72.0
--- NOTE | 2020-12-01 16:24 | PC.NURSE ---
Patient education was provided regarding new medications, homecare instructions, and post heart attack information. Patient IV in the R wrist was removed and was intact. Patient and had no questions or concerns. Patient was wheeled out via wheelchair.
--- NOTE | 2020-12-06 18:48 | PC.RESP ---
Smoking Cessation information sent to patient.
== END 2020-12-01 16:26 | disposition home or self-care (01) | DRG 247 ==
LOC: ER 17:24 → CSU 18:02
PROVIDERS: Admitting Provider Internal Medicine Cardiovascular Disease; Emergency Provider Family Medicine; PCP Family Medicine; Visit Provider Internal Medicine Cardiovascular Disease
PROC: 027135Z Dilation of Coronary Artery, Two Arteries with Two Drug-eluting Intraluminal Devices, Percutaneous Approach (ICD-10-PCS; principal; 2020-11-30 06:00)
PROC: 027135Z Dilation of Coronary Artery, Two Arteries with Two Drug-eluting Intraluminal Devices, Percutaneous Approach (ICD-10-PCS; 2020-11-30 06:00)
DX: I21.4 Non-ST elevation (NSTEMI) myocardial infarction (principal); F17.210 Nicotine dependence, cigarettes, uncomplicated; H91.90 Unspecified hearing loss, unspecified ear; E66.09 Other obesity due to excess calories; Z68.38 Body mass index [BMI] 38.0-38.9, adult; F12.90 Cannabis use, unspecified, uncomplicated; I25.10 Atherosclerotic heart disease of native coronary artery without angina pectoris; Z79.02 Long term (current) use of antithrombotics/antiplatelets
CPT/HCPCS: 36415; 71045; 80048; 80053; 83690; 83880; 84484; 85025; 85347; 93005; 93306; 93454; 96372; 99285; C1725; C1769; C1874; C1887; C1894; C9600; C9601; J1644; J1650; J2250; J3010; J3490; J7030; Q9967

== ENCOUNTER → 2020-12-08 11:41 | Outpatient (BNVA) | payer SELFPAY | PROVIDERS: PCP Family Medicine; Visit Provider Nurse Practitioner Family | DX: I21.4 Non-ST elevation (NSTEMI) myocardial infarction (principal); I25.10 Atherosclerotic heart disease of native coronary artery without angina pectoris | CPT/HCPCS: 80048 ==

== ENCOUNTER → 2021-04-06 14:42 | Outpatient (BNVA) | payer OTHER, SELFPAY | PROVIDERS: PCP Nurse Practitioner Family; Visit Provider Nurse Practitioner Family | DX: J22 Unspecified acute lower respiratory infection (principal); Z11.52 Encounter for screening for COVID-19 | CPT/HCPCS: 87635 ==

== ENCOUNTER 2021-10-14 10:27 | Outpatient (CLI) | payer OTHER, SELFPAY ==
[2021-10-14 11:00] LABS: Basophils # 0.1 10^3/uL (0.0-0.1); Basophils % 1.2 %; Eosinophils # 0.5 10^3/uL (0.0-0.8); Hematocrit 46.3 % (42.0-52.0); Hemoglobin 15.8 g/dL (11.7-16.6); Lymphocytes # 2.9 10^3/uL (0.8-4.8); Lymphocytes % 25.8 %; Mean Corpuscular HGB Conc 34.1 g/dL (30.0-36.0); Mean Corpuscular Hemoglobin 30.1 pg (28.0-34.0); Mean Corpuscular Volume 88.2 fl (80-94); Mean Platelet Volume 9.3 fL (7.4-10.4); Monocytes # 1.2 10^3/uL (0.2-0.9); Monocytes % 10.9 %; Neutrophils # 6.53 10^3/uL (1.8-7.7); Neutrophils % 57.8 %; Nucleated Red Blood Cells % 0 %; Platelet Count 288 10^3/cmm (130-400); Red Blood Count 5.25 10^6/uL (4.1-5.3); Red Cell Distribution Width 13.2 % (12.1-15.1); White Blood Count 11.3 10^3/uL (4.0-10.0)
[2021-10-14 11:27] LABS: Alanine Aminotransferase 23 U/L (0-41); Albumin Level 4.3 g/dL (3.5-5.2); Alkaline Phosphatase 71 IU/L (40-130); Anion Gap 14.6 (5-19); Aspartate Amino Transferase 17 U/L (0-40); Blood Urea Nitrogen 6 mg/dL (6-20); Calcium 9.8 mg/dL (8.5-10.5); Carbon Dioxide 28 mmol/L (22-29); Chloride 100 mmol/L (98-107); Globulin 3.3 g/dL (1.3-4.6); Glomerular Filtration Rate 102.7 mL/min (90-130); Glucose 127 mg/dL (65-115); Osmolality Calculated 287 mOsm/kg (285-295); Potassium 3.6 mmol/L (3.5-5.1); Sodium 139 mmol/L (136-145); Total Bilirubin 0.3 mg/dL (0.15-1.2); Total Protein 7.6 g/dL (6.6-8.7)
[2021-10-14 12:36] LABS: Hepatitis B Core AB, Total Non-Reactive (Nonreactive); Hepatitis B Surface Antigen Non-Reactive (Nonreactive); Hepatitis C Virus Antibody Non-Reactive (Nonreactive)
[2021-10-17 12:17] LABS: Quantiferon Mitogen >10.00 IU/mL; Quantiferon Nil 0.09 IU/mL; Quantiferon Plus TB1 <0.00 IU/mL; Quantiferon Plus TB2 <0.00 IU/mL; Quantiferon TB Gold NEGATIVE (NEGATIVE)
== END 2021-10-14 10:28 | disposition home or self-care (01) ==
LOC: LAB 10:29
PROVIDERS: PCP Nurse Practitioner Family; Visit Provider Internal Medicine
DX: M25.50 Pain in unspecified joint (principal)
CPT/HCPCS: 80053; 85025; 86480; 86704; 86803; 87340

== ENCOUNTER → 2022-05-03 09:32 | Outpatient (BNVA) | payer OTHER, SELFPAY | PROVIDERS: PCP Nurse Practitioner Family; Visit Provider Internal Medicine | DX: M25.50 Pain in unspecified joint (principal); Z79.899 Other long term (current) drug therapy | CPT/HCPCS: 80053; 85025; 85651; 86140 ==

== ENCOUNTER 2023-02-27 08:51 | Outpatient (CLI) | payer OTHER, SELFPAY ==
[2023-02-27] VITALS (7 sets, daily range): BP systolic 114–140; BP diastolic 68–88; PULSE 66–71; RESP 12–16; TEMP 37.1; O2SAT 96–97; BMI 43.9
--- NOTE | 2023-02-27 09:00 | XACV_ITS ---
Ht: 165 cm Wt: 120 kg BSA: 2.41 m2 Gender: Male : 1970 Any Known Allergies: No known allergies Exam Priority: Routine Procedure(s): Procedure Description: Diagnostic procedure Procedure Description: PCI procedure Procedure Description: Left Heart Catheterization Procedure Description: Drug Eluting Coronary Stent Procedure Description: PTCA Procedure Description: Miscellaneous Procedure Description: ACT Procedure Description: Coronary Angiography Procedure Description: Pressure Wire Diagnostic Cath Status: Elective Diagnostic Findings * INDICATION: 52-year-old man with past medical history of hypertension, CAD with prior LAD and OM stent has been having worsening anginal symptoms. The symptoms are worsening over the last 2 to 3 months. Also has been having dyspnea on exertion. Plan for coronary angiogram with possible percutaneous coronary intervention. * Left Main has no significant disease. * Circumflex has mild luminal irregularities. * Mid Left Anterior Descending: obstructive 60- 70% stenosis, ЕКАТЕРИНА: 3 flow. * Right Coronary Artery has no disease. * Coronary angiography shows right dominance. PCI Status: Elective PCI Indication: Other Interventional Findings * PROCEDURE DETAIL: We engaged left main artery with XB 3.0 guide catheter. IV heparin was administered to maintain anticoagulation. iFR wire was advanced through the guide and was normalized in the left main artery. We then advanced it into distal LAD. Significantly ischemic value of 0.88 was obtained for IFR. We then proceeded with PCI of mid LAD. We predilated the stenosis with 2.5 x 15 mm semicompliant balloon. This was followed by placement of 3.0 x 22 mm resolute Godwin drug-eluting stent. We postdilated the stent with 3.5 x 8 mm NC balloon. At this time final angiogram was performed that showed excellent stent expansion, no residual stenosis and ЕКАТЕРИНА-3 flow. Guidewire and guide catheter were removed. Patient left the Control Valve Mechanic in a stable condition.. * Mid Left Anterior Descendin% stenosis treated with a AB TREK 2.50X15 RX BALLOON, T R GODWIN 3.0X22 ОЛЬГА, and MDT JOSE ANGEL EUPHORA RX [id number] BALLOON. 0% residual stenosis, ЕКАТЕРИНА: 3 flow. Conclusions 1. Severe mid LAD stenosis confirmed with abnormal IFR. S/p successful revascularization with 1 stent.. 2. Mid Left Anterior Descending was treated with a Balloon, Drug Eluting Stent, and Balloon. Recommendations * Dual antiplatelet therapy with aspirin and plavix for atleast 1 year. * High intensity statin therapy. * Outpatient cardiology followup in 2-4 weeks. Interventional RX Recommendation: PCI w/o planned CABG Diagnostic RX Recommendation: PCI w/o planned CABG Anticoagulation: Heparin Pressures Phase:Rest AO : 109 / 83 ( 96 ) @ 11:31:00 AM 128 / 77 ( 96 ) @ 11:38:00 AM 126 / 75 ( 94 ) @ 11:38:00 AM 124 / 73 ( 92 ) @ 11:38:00 AM 136 / 82 ( 104 ) @ 11:40:00 AM LV : 145 / 10 / 28 @ 11:37:00 AM 150 / 6 / 25 @ 11:38:00 AM Valves Phase:DefaultPhase AV : 13.0 @ 11:10:10 AM 13.0 @ 11:10:10 AM AV Mean Gradient: 12.0 @ 11:10:10 AM 12.0 @ 11:10:10 AM Clinical Evaluation EBL: 5mL-10mL Procedural Details Procedure Consent Obtained. Pre-Procedure Time Out. Identified patient by full name and date of as verbalized by the patient/guarantor. Does the consent match the physician's order: Yes. Accurate & Complete Informed Consent: Yes. Inpatient/Outpatient History & Physical on Chart: Yes. If H&P is completed, is and addenduem needed: No; If yes, is the addendum complete: N/A. Visualize and Verify Site with Patient/Guarantor: N/A. Relevant Radiology Images available: N/A. Pre-op teaching completed and patient verbalized understanding. The risks, benefits, and alternatives of sedation and/or procedure were discussed by physician. The patient agrees to continue. Procedure started. Physician arrived. [facility] Clinical Fraility Score: 2: Well. Control Valve Mechanic Indications: Worsening Angina. Chest Pain Symptom Assessment: Typical Angina Symptoms. Cardiovascular Instability: No. Correct patient, site and procedure confirmed by cath team. PERRLA. Strong, equal hand tube backer bilaterally. Lungs clear x 5 lobes. IV Site on Arrival: 20 gauge in the right anticubital. IV Fluids: 0.9% NaCl at KVO. 0 mL infused prior to labview programmer. Pre Procedural Pulses: bilateral dorsalis pedis was 3+. Pre Procedural Pulses: bilateral posterior tibial was 3+. Pre Procedural Pulses: bilateral radial was 3+. Oxygen started at 2liters/min via nasal canula. right groin was prepped with chloroprep then draped in the usual sterile fashion. right radial was prepped with chloroprep then draped in the usual sterile fashion. Baseline sample Acquired. HR: 49 BPM. Equipment: 6F - Radial. Cardiac Cath Pack. ACIST Manifold Kit Model BT 2000. Heparinized Saline (2 units/mL), 1000 mL bag. Physician scrubbed in. Immediate Pre-Procedure Time Out. Correct Patient: Yes; Correct Procedure: Yes; Correct Site: Yes; Correct Patient Position: Yes; Correct Supplies: Yes; Dried Flammable Prep: Yes; Blood Products Available: N/A;. Lidocaine 1% infiltrated to the right radial. Arterial access obtained. A 5 omani TIG catheter in over wire. Multiple views taken of left coronary artery. Catheter redirected to the RCA. Multiple views taken of right coronary artery. EDP Sample taken: LV 145/10,28; HR: 73 BPM; SpO2: 95%. Pullback taken: LV 150/6,25; AO 128/77(96); Mean: 12mmHg, Peak to Peak: 13mmHg, SEP: 8sec/min; HR: 74 BPM; SpO2: 96%. Catheter removed over the exchange wire. 6 omani XB 3 guide catheter was inserted over the wire. IFR pressure guidewire was advanced through the guide catheter to lesion in the mid LAD. IFR measurement obtained: 0.88. Inflation number : 1 A AB TREK 2.50X15 RX BALLOON was prepped and advanced across the Mid LAD , then inflated to 10 RICKY for 0:19 seconds. Inflation number: 2 The AB TREK 2.50X15 RX BALLOON was reinflated across the Mid LAD, to 12 RICKY for 0:11 seconds. Balloon out. Results checked. MDT R GODWIN 3.0x18 ОЛЬГА inserted. Unable to cross lesion. Intact stent removed. Inflation Number : 3 A MDT R GODWIN 3.0X22 ОЛЬГА -Lot Number# [id number] exp date 10/06/2024 was prepped and advanced across the Mid LAD. The stent was deployed at 12 RICKY for 0:19 seconds. Stent balloon out over wire. Inflation number : 4 A MDT NC EUPHORA RX [id number] BALLOON was prepped and advanced across the Mid LAD , then inflated to 12 RICKY for 0:09 seconds. Inflation number: 5 The MDT NC EUPHORA RX [id number] BALLOON was reinflated across the Mid LAD, to 12 RICKY for 0:09 seconds. Inflation number: 6 The MDT NC EUPHORA RX [id number] BALLOON was reinflated across the Mid LAD, to 12 RICKY for 0:08 seconds. Balloon out. ACT drawn. Results 333 seconds. Therapeutic limits - pre-heparin administration 90-150 seconds and monitoring heparin during a vascular procedure >250 seconds. Results checked. Wire out. Guide catheter out. Physician scrubbed out. A TR Band was successful obtaining hemostatsis at the Right Radial artery insertion site. TR band placed. Hemostasis obtained. Post Procedure: Pulses reassessed and unchanged. PERRLA. Strong, equal hand tube backer bilaterally. No VTE prophylaxis required. Medication's Wasted: Lidocaine 1% = 2 mL. Medication's Wasted: Nitro = 49.6 mg. Total IV fluids: 58 mL. Contrast type used: Omnipaque 300 mgI/mL, 500 mL bottle. Complications: none. Post-op diagnosis: severe mid LAD stenosis. Estimated blood loss: 5mL-10mL. Responsiveness - Normal response to verbal stimuli; alert and oriented, PERRLA. Airway - Unaffected, no intervention required; spontaneous ventilation. Circulation: W/N/L, pulses unchanged. Nausea/Vomiting: No. Procedure completed. Patient transferred by wheelchair to CPRU. Vital chart was stopped. Access Site Site: Right Radial artery Sheath Size: 6 Fr Hemostasis Method: TR Band Hemostasis Success: Successful Procedure Medications Start: 10:18 AM Stop: 10:18 AM Medication: Versed Amount: 1 mg Route: I.V. Start: 10:18 AM Stop: 10:18 AM Medication: Fentanyl Amount: 50 mcg Route: I.V. Start: 10:26 AM Stop: 10:26 AM Medication: Versed Amount: 1 mg Route: I.V. Start: 10:27 AM Stop: 10:27 AM Medication: Fentanyl Amount: 50 mcg Route: I.V. Start: 10:28 AM Stop: 10:28 AM Medication: Nitrogylcerin Amount: 200 mcg Route: I.A. Start: 10:29 AM Stop: 10:29 AM Medication: Versed Amount: 1 mg Route: I.V. Start: 10:29 AM Stop: 10:29 AM Medication: Heparin Amount: 5000 units Route: I.V. Start: 10:40 AM Stop: 10:40 AM Medication: Heparin Amount: 5000 units Route: I.V. Start: 10:44 AM Stop: 10:44 AM Medication: Versed Amount: 1 mg Route: I.V. Start: 10:50 AM Stop: 10:50 AM Medication: Heparin Amount: 2000 units Route: I.V. Start: 11:01 AM Stop: 11:01 AM Medication: Nitrogylcerin Amount: 200 mcg Route: I.C. Start: 11:05 AM Stop: 11:05 AM Medication: Plavix Amount: 300 mg Route: P.O. I, the attending physician, have reviewed and verified all procedure medications. Yes, all medications given per verbal order History/Risk Factors Hypertension: Yes Dyslipidemia: No Peripheral Arterial Disease (PAD): No Myocardial Infarction (CA): Yes Obesity: Yes Renal Disease: No Tobacco Use: Current/Recent(w/in 1 year) Prior Interventions PCI: Yes CABG: No Valve Surgery: No Report Signatures Finalized by Xavi Gallo MD on 03/06/2023 12:49 PM
[2023-02-27] MEDS: aspirin 325 mg Tablet PO (09:20)
[2023-02-27] MEDS: diphenhydrAMINE 50 mg Capsule PO (09:20)
[2023-02-27 10:00] LABS: Basophils # 0.1 10^3/uL (0.0-0.1); Eosinophils # 0.4 10^3/uL (0.0-0.8); Eosinophils % 3.5 %; Hematocrit 43.4 % (42.0-52.0); Hemoglobin 14.8 g/dL (11.7-16.6); Lymphocytes # 2.5 10^3/uL (0.8-4.8); Lymphocytes % 23.5 %; Mean Corpuscular HGB Conc 34.1 g/dL (30.0-36.0); Mean Corpuscular Hemoglobin 30.1 pg (28.0-34.0); Mean Corpuscular Volume 88.4 fl (80-94); Mean Platelet Volume 9.3 fL (7.4-10.4); Neutrophils # 6.71 10^3/uL (1.8-7.7); Neutrophils % 62.6 %; Nucleated Red Blood Cells % 0 %; Platelet Count 274 10^3/cmm (130-400); Red Blood Count 4.91 10^6/uL (4.1-5.3); Red Cell Distribution Width 13.3 % (12.1-15.1); White Blood Count 10.7 10^3/uL (4.0-10.0)
[2023-02-27 10:11] LABS: Anion Gap 12.8 (5-19); Blood Urea Nitrogen 7 mg/dL (6-20); Calcium 9.2 mg/dL (8.5-10.5); Carbon Dioxide 27 mmol/L (22-29); Chloride 102 mmol/L (98-107); Glomerular Filtration Rate 89.3 mL/min (90-130); Glucose 100 mg/dL (65-115); Osmolality Calculated 284 mOsm/kg (285-295); Potassium 3.8 mmol/L (3.5-5.1); Sodium 138 mmol/L (136-145)
--- NOTE | 2023-02-27 11:15 | SUR.EXTENDED ---
Received the patient back from the refuse laborer via wheelchair s/p PCI of the LAD. Patient ambulated to the bed without difficulty. Patient A & O x 3. break out man placed and vital signs obtained. TR band intact to the right wrist with no bleeding or hematoma noted. Palpable radial pulse. No other assessment changes noted from pre cath assessment. Spouse at bedside.
--- NOTE | 2023-02-27 12:03 | SUR.EXTENDED ---
Patient transferred to room 111-2 via wheelchair. Report was called to HAO Clark by Haider Antunez RN.
--- NOTE | 2023-02-27 12:53 | P.HP_ITS ---
Same Day Surgery H&P Indication for Procedure/HPI DATE OF PROCEDURE: February 27, 2023 CHIEF COMPLAINT/INDICATIONFOR SURGICAL PROCEDURE: Worsening angina PREOP DIAGNOSIS: Worsening angina PLANNED PROCEDURE: Or Operation Date: 02/27/23 10:00 Proposed Procedures p [facility] 31587,I50.9; I20.0; I10; I25.10; I21.4(Left) - Xavi Gallo M.D Possible percutaneous coronary intervention 52-year-old man with past medical history of hypertension, CAD with prior LAD and OM stent has been having worsening anginal symptoms. The symptoms are worsening over the last 2 to 3 months. Also has been having dyspnea on exertion. Plan for coronary angiogram with possible percutaneous coronary intervention. Medications/Allergies* Home Medications Medication Instructions Recorded Confirmed Type aspirin 81 mg tablet,delayed 81 mg PO DAILY 12/08/20 02/26/23 History release Allergies/Adverse Reactions Allergy/AdvReac Type Severity Reaction Status Date / Time No Known Allergies Allergy Verified 02/27/23 09:54 Current Medications: Generic Name Dose Route Start Last Admin Trade Name Freq PRN Reason Stop Dose Admin Sodium Chloride 1,000 mls @ 50 mls/hr 02/27/23 09:00 02/27/23 09:54 Sodium Chloride 0.9% IV 02/28/23 04:59 Not Given .Q20H ONE Pertinent History/Comorbid Conditions* Medical History (Updated 02/05/23 @ 14:36 by Xavi Gallo M.D) Coronary artery disease Encounter for screening for COVID-19 Hypertension Lower respiratory infection NSTEMI (non-ST elevated myocardial infarction) Family History (Updated 10/14/21 @ 09:41 by Rosa Isela Moses LPN) Rheumatoid arthritis Diabetes Father CAD (coronary artery disease) Hyperlipidemia Chronic kidney disease (CKD) Family history of premature coronary artery disease Father Brother Unknown Cancer Mother Hypertension Stroke Father Denies family history of Lupus Social History Smoking and tobacco status: current every day smoker cigarettes Packs smoked per day: 1 Quit status (tobacco): considering quitting Alcohol intake: never Substance/Drug Use: current Substance/Drug use frequency: few times a month Pertinent Exam Findings alert, oriented x 3, clear to auscultation bilaterally and regular rate & rhythm Conscious Sedation Assessment PATIENT ASSESSED PRIOR TO SEDATION, WITH NO CHANGE NOTED: Yes AIRWAY EVAL/ANESTHESIA PLAN: normal airway, ASA III, Local Anesthesia, Risks, benefits & alternatives of sedation and/or procedure discussed and Patient agrees to continue as planned Recommendations Surgery/Procedure today (Left heart cath with possible percutaneous coronary intervention) Coding Level of Care Code Acute Code for Chg Fwd Diagnoses
[2023-02-27] MEDS: sodium chloride 0.9% 1,000 ML 100 ML IV (14:08)
--- NOTE | 2023-02-27 19:41 | PC.NURSE ---
Patient is s/p [facility] with right radial access. Dressing in place to right wrist remains c,d,i with no s/s of bleeding or hematoma formation observed. Patient denies pain to site. Instructed patient on site care and restrictions. Patient verbalized complete understanding. Will continue to monitor.
[2023-02-28 00:36] VITALS: BP 132/68; PULSE 68; RESP 17; TEMP 36.8; O2SAT 95
[2023-02-28 04:18] VITALS: BP 146/75; PULSE 74; RESP 16; TEMP 36.4; O2SAT 92
[2023-02-28 04:47] VITALS: PULSE 64
[2023-02-28 05:17] LABS: Basophils # 0.1 10^3/uL (0.0-0.1); Basophils % 1.3 %; Eosinophils # 0.4 10^3/uL (0.0-0.8); Eosinophils % 5.3 %; Hemoglobin 14.4 g/dL (11.7-16.6); Lymphocytes # 2.3 10^3/uL (0.8-4.8); Mean Corpuscular HGB Conc 33.5 g/dL (30.0-36.0); Mean Corpuscular Hemoglobin 30.1 pg (28.0-34.0); Mean Corpuscular Volume 89.8 fl (80-94); Mean Platelet Volume 9.4 fL (7.4-10.4); Monocytes # 0.8 10^3/uL (0.2-0.9); Monocytes % 9.6 %; Neutrophils # 4.74 10^3/uL (1.8-7.7); Neutrophils % 56.6 %; Nucleated Red Blood Cells % 0 %; Platelet Count 242 10^3/cmm (130-400); Red Blood Count 4.79 10^6/uL (4.1-5.3); Red Cell Distribution Width 13.3 % (12.1-15.1); White Blood Count 8.4 10^3/uL (4.0-10.0)
[2023-02-28 05:52] LABS: Anion Gap 15.1 (5-19); Blood Urea Nitrogen 9 mg/dL (6-20); Calcium 9.2 mg/dL (8.5-10.5); Carbon Dioxide 27 mmol/L (22-29); Chloride 103 mmol/L (98-107); Glomerular Filtration Rate 79.1 mL/min (90-130); Glucose 91 mg/dL (65-115); Osmolality Calculated 290 mOsm/kg (285-295); Potassium 4.1 mmol/L (3.5-5.1); Sodium 141 mmol/L (136-145)
[2023-02-28] MEDS: losartan 50 mg Tablet PO (08:00)
[2023-02-28] MEDS: aspirin 81 mg EC Tablet PO (08:00)
[2023-02-28] MEDS: clopidogrel 75 mg Tablet PO (08:00)
[2023-02-28] MEDS: metoprolol succinate ER (24 HR) 50 mg Tablet PO (08:00)
[2023-02-28] MEDS: atorvastatin 40 mg Tablet PO (08:00)
[2023-02-28 08:23] VITALS: BP 137/60; PULSE 67; RESP 18; TEMP 36.7
--- NOTE | 2023-02-28 08:32 | PM.DCS ---
Discharge Providers Date of Admission: 02/27/2023 Date of Discharge: February 28, 2023 Attending Provider at Discharge: Xavi Gallo M.D Reason for Visit Reason for Visit: I50.9; I20.0; I10; I25.10; I21.4 Brief History: 52-year-old man with past medical history of hypertension, CAD with prior LAD and OM stent has been having worsening anginal symptoms.? The symptoms are worsening over the last 2 to 3 months.? Also has been having dyspnea on exertion.? Plan for coronary angiogram with possible percutaneous coronary intervention. Hospital Course Hospital Course Coronary angiogram demonstrated moderate to severe mid LAD stenosis. He underwent IFR that was abnormal with a value of 0.88. We performed revascularization with 1 stent. Patient was observed overnight. He stayed stable and was discharged home in a stable condition. Physical Exam Narrative: GENERAL: Patient is alert, awake and oriented x3. [] NECK: No jugular vein distension. [] HEENT: No cyanosis. No icterus. No pallor. [] HEART: Regular S1 and S2. No murmur, rub or gallop. [] LUNGS: Clear to auscultate bilaterally. [] CENTRAL NERVOUS SYSTEM: Grossly nonfocal. [] EXTREMITIES: Lower extremities with 1+ edema bilaterally. Pulses palpable in the lower extremities, both dorsalis pedis and posterior tibial. [] Discharge Data Studies Completed and Pending Pending at discharge Category Date Time Status INCOME TAX PREPARER request for service Routine Exams 02/27/23 09:00 Taken Laboratory Results WBC 8.4 10^3/uL (4.0-10.0) 02/28/23 04:10 RBC 4.79 10^6/uL (4.1-5.3) 02/28/23 04:10 Hgb 14.4 g/dL (11.7-16.6) 02/28/23 04:10 Hct 43.0 % (42.0-52.0) 02/28/23 04:10 MCV 89.8 fl (80-94) 02/28/23 04:10 MCH 30.1 pg (28.0-34.0) 02/28/23 04:10 MCHC 33.5 g/dL (30.0-36.0) 02/28/23 04:10 RDW 13.3 % (12.1-15.1) 02/28/23 04:10 Plt Count 242 10^3/cmm (130-400) 02/28/23 04:10 MPV 9.4 fL (7.4-10.4) 02/28/23 04:10 Neut % (Auto) 56.6 % 02/28/23 04:10 Lymph % (Auto) 27.0 % 02/28/23 04:10 [place] % (Auto) 9.6 % 02/28/23 04:10 Eos % (Auto) 5.3 % 02/28/23 04:10 Baso % (Auto) 1.3 % 02/28/23 04:10 Neut # (Auto) 4.74 10^3/uL (1.8-7.7) 02/28/23 04:10 Lymph # (Auto) 2.3 10^3/uL (0.8-4.8) 02/28/23 04:10 [place] # (Auto) 0.8 10^3/uL (0.2-0.9) 02/28/23 04:10 Eos # (Auto) 0.4 10^3/uL (0.0-0.8) 02/28/23 04:10 Baso # (Auto) 0.1 10^3/uL (0.0-0.1) 02/28/23 04:10 Nucleated RBC % (auto) 0 % 02/28/23 04:10 Nucleated RBCs # 0.0 /100WBC 02/28/23 04:10 Sodium 141 mmol/L (136-145) 02/28/23 04:10 Potassium 4.1 mmol/L (3.5-5.1) 02/28/23 04:10 Chloride 103 mmol/L (98-107) 02/28/23 04:10 Carbon Dioxide 27 mmol/L (22-29) 02/28/23 04:10 Anion Gap 15.1 (5-19) 02/28/23 04:10 BUN 9 mg/dL (6-20) 02/28/23 04:10 Creatinine 1.0 mg/dL (0.7-1.2) 02/28/23 04:10 GFR Calculation 79.1 mL/min (90-130) L 02/28/23 04:10 Glucose 91 mg/dL (65-115) 02/28/23 04:10 Calculated Osmolality 290 mOsm/kg (285-295) 02/28/23 04:10 Calcium 9.2 mg/dL (8.5-10.5) 02/28/23 04:10 Vitals Last Vital Signs Temp 98.1 F 02/28/23 08:23 Pulse 67 02/28/23 08:23 Resp 18 02/28/23 08:23 BP 137/60 02/28/23 08:23 Pulse Ox 92 02/28/23 04:18 O2 Del Method Room Air 02/28/23 04:18 Discharge Plan Discharge Patient Disposition: Home Prescriptions: No Action aspirin 81 mg tablet,delayed release (DR/EC) 81 mg PO DAILY losartan 100 mg tablet 100 mg PO DAILY Qty: 90 3RF atorvastatin 40 mg tablet 40 mg PO DAILY Qty: 60 0RF Rx Instructions: MUST be seen for further refills clopidogrel 75 mg tablet 75 mg PO DAILY Qty: 60 0RF Rx Instructions: MUST be seen for further refills metoprolol succinate 50 mg tablet extended release 24 hr 50 mg PO DAILY Qty: 60 0RF Rx Instructions: MUST be seen for further refills Discharge Orders: Discharge Order (Routine); Ordered 02/28/23 Ordered By: Xavi Gallo Referrals: Kate Adams FNP [Nurse Practitioner] - 03/07/23 10:45 am Diet: Cardiac Patient Instructions: Coronary Artery Disease (DC), Coronary Angioplasty (DC), Chest Pain Stoplight, Post Angiogram Home Care Instructions Stand Alone Forms: Work/School Release Discharge Date/Time: 02/28/23 10:15 Discharge Attestations Time Spent in Discharge Care*: less than 30 min Quality Metrics Clinical Quality Measures [ No reported AMI, CVA or VTE this stay] Coding Level of Care Code Acute Code for Chg Fwd Diagnoses
--- NOTE | 2023-02-28 10:17 | DCPLANNER ---
Discharge Note Patient discharged to [home] via [POV] accompanied by [friend]. Discharge instructions reviewed with patient and/or business process representative. Mobile pharmacy medications and/or prescriptions provided. Belongings/home medications returned.
== END 2023-02-28 10:15 | disposition home or self-care (01) ==
LOC: CCL 08:57 → CSU 13:30
PROVIDERS: PCP Nurse Practitioner Family; Visit Provider Internal Medicine
DX: I25.118 Atherosclerotic heart disease of native coronary artery with other forms of angina pectoris (principal); I10 Essential (primary) hypertension; E66.9 Obesity, unspecified; Z68.41 Body mass index [BMI] 40.0-44.9, adult; Z79.82 Long term (current) use of aspirin; F17.210 Nicotine dependence, cigarettes, uncomplicated
CPT/HCPCS: 36415; 80048; 85025; 85347; 93458; 93571; 96361; 96365; 96376; 99152; 99153; C1725; C1769; C1874; C1887; C1894; C9600; J1644; J2250; J3010; J3490; J7030; Q0163; Q9967

== ENCOUNTER → 2023-03-07 11:28 | Outpatient (BNVA) | payer OTHER, SELFPAY | PROVIDERS: PCP Nurse Practitioner Family; Visit Provider Nurse Practitioner Family | DX: I25.119 Atherosclerotic heart disease of native coronary artery with unspecified angina pectoris | CPT/HCPCS: 36415; 80048 ==

== ENCOUNTER 2023-11-26 16:29 | Emergency (ER) | payer OTHER, SELFPAY ==
[2023-11-26 16:40] VITALS: BP 169/84; PULSE 66; RESP 18; TEMP 36.3; O2SAT 96
[2023-11-26 17:28] VITALS: BP 135/82; PULSE 54; RESP 16; O2SAT 96
--- NOTE | 2023-11-26 17:33 | CTR_ITS ---
PROCEDURE INFORMATION: Exam: CT Head Without Contrast Exam date and time: 11/26/2023 5:40 PM Age: 53 years old Clinical indication: Injury or trauma; Blunt trauma (contusions or hematomas) and concussion/head injury; Injury details: Patient states fall last night, hit head, + loc, went to a different hospital and was told bleed was seen on CT head; Additional info: Recent intracranial bleed TECHNIQUE: Imaging protocol: Computed tomography of the head without contrast. Radiation optimization: All CT scans at this facility use at least one of these dose optimization techniques: automated exposure control; mA and/or kV adjustment per patient size (includes targeted exams where dose is matched to clinical indication); or iterative reconstruction. COMPARISON: No relevant prior studies available. RADIATION DOSE METRICS: Total DLP (mGy-cm): 1141.58 FINDINGS: Brain: Small left frontal subarachnoid hemorrhage. Mild asymmetry of the transverse sinuses without definitive subdural hematoma. No other evidence of intracranial hemorrhage. No mass effect. Cerebral ventricles: No ventriculomegaly. Paranasal sinuses: The paranasal sinuses are clear. Mastoid air cells: Small nonspecific fluid in the right inferior mastoid air cells. Mastoids are otherwise clear. Bones/joints: No fracture identified. Soft tissues: Right posterolateral scalp hematoma. CT/CT head wo con* [id number] IMPRESSION: 1. Small left frontal subarachnoid hemorrhage. 2. No other evidence of acute intracranial hemorrhage. 3. Small fluid in the inferior right mastoid air cells is nonspecific. No fracture visualized. 4. Mild right posterolateral scalp hematoma.
--- NOTE | 2023-11-26 17:49 | ECG_ITS ---
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 Measurements Intervals [place] Rate: 55 P: 29 HI: 180 QRS: 55 QRSD: 81 T: 42 QT: 390 QTc: 373 Interpretive Statements SINUS BRADYCARDIA Compared to ECG 11/29/2020 22:01:11 T-wave abnormality no longer present Possible ischemia no longer present Electronically Signed On 11-27-2023 21:38:48 CDT by Eduardo Terrell M.D. [id number]
[2023-11-26 18:54] LABS: Basophils # 0.1 10^3/uL (0.0-0.1); Basophils % 1.2 %; Eosinophils # 0.4 10^3/uL (0.0-0.8); Eosinophils % 3.7 %; Hematocrit 43.3 % (37-53); Lymphocytes # 3.4 10^3/uL (0.8-4.8); Mean Corpuscular HGB Conc 34.6 g/dL (30-55); Mean Corpuscular Hemoglobin 30.9 pg (27-33); Mean Corpuscular Volume 89.1 fl (82-101); Mean Platelet Volume 9.2 fL (7.4-10.4); Monocytes # 1.1 10^3/uL (0.2-0.9); Monocytes % 10.7 %; Neutrophils % 50.3 %; Nucleated Red Blood Cells % 0 %; Platelet Count 254 10^3/cmm (157-399); Red Blood Count 4.86 10^6/uL (3.85-5.65); Red Cell Distribution Width 13.2 % (12.1-15.1); White Blood Count 10.12 10^3/uL (3.29-11.43)
[2023-11-26 19:10] LABS: INR 1.01 (0.8-1.2)
[2023-11-26 19:11] LABS: Partial Thromboplastin Time 36.3 SECONDS (23.9-36.7)
[2023-11-26 19:14] LABS: Alanine Aminotransferase 30 U/L (0-41); Albumin Level 4.1 g/dL (3.5-5.2); Alkaline Phosphatase 72 U/L (40-130); Anion Gap 11.6 (5-19); Aspartate Amino Transferase 21 U/L (0-40); Blood Urea Nitrogen 9 mg/dL (6-20); Calcium 8.9 mg/dL (8.5-10.5); Carbon Dioxide 29 mmol/L (22-29); Chloride 102 mmol/L (98-107); Creatinine Clr Calc Pharmacy 132.7089; Globulin 3.5 g/dL (1.3-4.6); Glomerular Filtration Rate 101.9 mL/min (90-130); Glucose 92 mg/dL (65-115); Osmolality Calculated 286 mOsm/kg (285-295); Potassium 3.6 mmol/L (3.5-5.1); Sodium 139 mmol/L (136-145); Total Bilirubin 0.4 mg/dL (0.15-1.2); Total Protein 7.6 g/dL (6.6-8.7)
--- NOTE | 2023-11-26 19:25 | ED_ITS ---
HPI - Dizziness 2 General: Chief Complaint: Dizziness Stated Complaint: fall, dizzy Time Seen by Provider: 11/26/23 17:33 History of Present Illness: HPI Narrative: Patient presents to the ER with complaints of a fall hitting his head dizziness and headache. Patient fell last night about 11:00. Patient thinks he took a big drink of something and choked passed out and fell down hit his head. Patient was seen at the [facility] ER reviewed a head CT that showed he had a small frontal bleed per the patient they kept him for 3 hours he repeated the head CT the bleed has not changed. So they discharged him home. Patient's on Plavix. They told him to follow-up in 2 days. Patient is no better and was concerned that they did not keep him so he came here for second opinion. Review of Systems 2 General: Reports: 10 or more systems reviewed and unremarkable except in HPI and below PFSH ED 2 PFSH: Medical History Encounter for screening for COVID-19 Lower respiratory infection Hypertension Coronary artery disease NSTEMI (non-ST elevated myocardial infarction) Family History Father Diabetes Stroke Family history of premature coronary artery disease Brother Family history of premature coronary artery disease Unknown Family history of premature coronary artery disease Mother Cancer Other CAD (coronary artery disease) Chronic kidney disease (CKD) Hyperlipidemia Hypertension Rheumatoid arthritis Denies family history of Lupus Social History Smoking and tobacco/nicotine status: current every day tobacco/nicotine user cigarettes Packs smoked per day: 1 Quit status (tobacco/nicotine): considering quitting Alcohol intake: never Substance/Drug Use: current Substance/Drug use frequency: few times a month Physical Exam 2 Const: COMMON NORMALS: no acute distress, average body habitus, patient oriented x3, no limitations, healthy appearing, alert and well nourished HENMT: COMMON NORMALS: normocephalic, external ears normal, Normal external nose present, moist oral mucous membranes and oropharynx normal; head/scalp not atraumatic (Large swelling on right posterior occipital region) and hearing grossly not normal bilaterally (Patient hard of hearing) HEAD & SCALP: normocephalic; not atraumatic (Large swelling on right posterior occipital region) NOSE: N ormal external nose present EXTERNAL EAR: Yes external ears normal Eye: COMMON NORMALS: Equal, round and reactive pupils present, EOMs intact bilaterally, conjunctivae normal and no scleral icterus CONJUNCTIVA: Yes conjunctivae normal PUPIL: Yes Equal, round and reactive pupils present Neck/C-Spine: COMMON NORMALS: full ROM, no lymphadenopathy, supple, no meningeal signs, no JVD and Thyroid normal THYROID: Thyroid normal Chest: COMMONS NORMALS: normal inspection of the chest and normal palpation of entire chest wall Resp: COMMON NORMALS: normal respiratory effort, No retractions, No use of accessory muscles and clear to auscultation bilaterally AUSCULTATION: clear to auscultation bilaterally Cardio: COMMON NORMALS: no JVD, regular rate, regular rhythm, S1 normal heart sound present, S2 normal heart sound present, No gallops present (Cardio), No clicks present (Cardio), No murmurs present (Cardio) and No rub (Cardio) R ATE: regular rate RHYTHM: regular rhythm HEART SOUNDS: S1 normal heart sound present and S2 normal heart sound present GI: COMMON NORMALS: Normal to inspection, nondistended, normoactive bowel sounds present, Soft to palpation, non-tender, No hepatosplenomegaly present and no masses PALPATION: Yes Soft to palpation and Yes No hepatosplenomegaly present Neuro: COMMON NORMALS: patient oriented x3 SENSORIUM/ORIENTATION: Yes alert MENINGEAL SIGNS: Yes no meningeal signs Course 2 Vital Signs: Vital signs: Vital Signs Temperature 97.4 F L 11/26/23 16:40 Pulse Rate 54 L 11/26/23 17:28 Respiratory Rate 16 11/26/23 17:28 Blood Pressure 135/82 11/26/23 17:28 Pulse Oximetry 96 11/26/23 17:28 Oxygen Delivery Me thod Room Air 11/26/23 17:28 MDM - Dizziness Medical Decision Making Lab work was obtained which essentially was unremarkable. Head CT showed small frontal subarachnoid hemorrhage. This is consistent with his previous CT scans. Upon waiting for lab work and CTs to come back patient decided that he just wanted to go home. Patient will be discharged home and is to follow-up with his PCP. Patient knows that if anything worsens or changes he needs to come back immediately as the bleed can get bigger. I would recommend that he hold his Plavix for the next 5 days. But the previous ER doctor told him he can take it. So I would leave this up to the patient. Differential Diagnosis Unlikely adverse reaction to drug, benign paroxysmal positional vertigo, orthostatic hypotension, vertebral basilar insufficiency, cerebrovascular accident, acute vestibular neuronitis or transient cerebral ischemia Medical Records I reviewed the patient's medical records. Lab Data I reviewed the patient's lab results. 11/26/23 18:39 11/26/23 18:[address] 11/26/23 17:33 IMPRESSION: 1. Small left frontal subarachnoid hemorrhage. 2. No other evidence of acute intracranial hemorrhage. 3. Small fluid in the inferior right mastoid air cells is nonspecific. No fracture visualized. 4. Mild right posterolateral scalp hematoma. ADDENDUM: 11/26/231820 ADDENDUM: THIS REPORT CONTAINS FINDINGS THAT MAY BE CRITICAL TO PATIENT CARE. The findings were verbally communicated via telephone conference with Dr. Nicolas at 6:19 PM CDT on 11/26/2023. The findings were acknowledged and understood. Laboratory Results WBC 10.12 10^3/uL (3.29-11.43) 11/26/23 18:39 RBC 4.86 10^6/uL (3.85-5.65) 11/26/23 18:39 Hgb 15.00 g/dL (11.27-16.99) 11/26/23 18:39 Hct 43.3 % (37-53) 11/26/23 18:39 MCV 89.1 fl (82-101) 11/26/23 18:39 MCH 30.9 pg (27-33) 11/26/23 18:39 MCHC 34.6 g/dL (30-55) 11/26/23 18:39 RDW 13.2 % (12.1-15.1) 11/26/23 18:39 Plt Count 254 10^3/cmm (157-399) 11/26/23 18:39 MPV 9.2 fL (7.4-10.4) 11/26/23 18:39 Neut % (Auto) 50.3 % 11/26/23 18:39 Lymph % (Auto) 34.0 % 11/26/23 18:39 Lane % (Auto) 10.7 % 11/26/23 18:39 Eos % (Auto) 3.7 % 11/26/23 18:39 Baso % (Auto) 1.2 % 11/26/23 18:39 Neut # (Auto) 5.10 10^3/uL (1.8-7.7) 11/26/23 18:39 Lymph # (Auto) 3.4 10^3/uL (0.8-4.8) 11/26/23 18:39 Lane # (Auto) 1.1 10^3/uL (0.2-0.9) H 11/26/23 18:39 Eos # (Auto) 0.4 10^3/uL (0.0-0.8) 11/26/23 18:39 Baso # (Auto) 0.1 10^3/uL (0.0-0.1) 11/26/23 18:39 Nucleated RBC % (auto) 0 % 11/26/23 18:39 Nucleated RBCs # 0.0 /100WBC 11/26/23 18:39 PT 13.60 SECONDS (12.1-14.9) 11/26/23 18:39 INR 1.01 (0.8-1.2) 11/26/23 18:39 APTT 36.3 SECONDS (23.9-36.7) 11/26/23 18:39 Sodium 139 mmol/L (136-145) 11/26/23 18:39 Potassium 3.6 mmol/L (3.5-5.1) 11/26/23 18:39 Chloride 102 mmol/L (98-107) 11/26/23 18:39 Carbon Dioxide 29 mmol/L (22-29) 11/26/23 18:39 Anion Gap 11.6 (5-19) 11/26/23 18:39 BUN 9 mg/dL (6-20) 11/26/23 18:39 Creatinine 0.8 mg/dL (0.7-1.2) 11/26/23 18:39 GFR Calculation 101.9 mL/min (90-130) 11/26/23 18:39 Glucose 92 mg/dL (65-115) 11/26/23 18:39 Calculated Osmolality 286 mOsm/kg (285-295) 11/26/23 18:39 Calcium 8.9 mg/dL (8.5-10.5) 11/26/23 18:39 Total Bilirubin 0.4 mg/dL (0.15-1.2) 11/26/23 18:39 AST 21 U/L (0-40) 11/26/23 18:39 ALT 30 U/L (0-41) 11/26/23 18:39 Alkaline Phosphatase 72 U/L (40-130) 11/26/23 18:39 Total Protein 7.6 g/dL (6.6-8.7) 11/26/23 18:39 Albumin 4.1 g/dL (3.5-5.2) 11/26/23 18:39 Globulin 3.5 g/dL (1.3-4.6) 11/26/23 18:39 All radiology interpretation(s) finalized by discharge Discharge Plan Discharge Patient Disposition: Home Clinical Impression: Subarachnoid hemorrhage following injury with concussion Condition: Stable Prescriptions: No Action aspirin 81 mg tablet,delayed release (DR/EC) 81 mg PO DAILY losartan 100 mg tablet 100 mg PO DAILY Qty: 90 3RF nitroglycerin 0.4 mg tablet, sublingual 0.4 mg sublingual Q5M PRN (Reason: chest pain) Qty: 25 2RF Rx Instructions: do not exceed 3 doses per episode clotrimazole-betamethasone 1-0.05 % cream 1 applic topical BID 14 Days Qty: 45 2RF atorvastatin 40 mg tablet 40 mg PO DAILY Qty: 60 0RF Rx Instructions: MUST be seen for further refills clopidogrel 75 mg tablet 75 mg PO DAILY Qty: 60 0RF Rx Instructions: MUST be seen for further refills metoprolol succinate 50 mg tablet extended release 24 hr 50 mg PO DAILY Qty: 60 0RF Rx Instructions: MUST be seen for further refills Discharge Orders: Discharge ED (Routine); Ordered 11/26/23 Ordered By: Chris Nicolas Referrals: Geraldine Durham NP [Primary Care Provider] - 1 week Patient Instructions: Concussion/Head Injury - Adult, Post Concussion Syndrome (ED) Activity Restrictions/Additional Instructions: Your evaluated in ER with lab work and repeat CT scan. The lab work was unremarkable. Your repeat CT scan showed a small frontal subarachnoid bleed this is consistent with your prior scans. It is recommended you hold your aspirin and Plavix for the next 5 days because these may worsen this bleed. He also have been diagnosed with a concussion secondary to this trauma. Please follow-up with your family practitioner within the next 7 days for further evaluation and treatment. If anything changes or worsens your condition please return to the ER immediately as your your condition may worsen. Coding Level of Care Code ED Consumer Relations Specialist for Mario Cazares
[2023-11-26 20:28] VITALS: BP 130/85; PULSE 62; RESP 21; O2SAT 97
[2023-11-26 20:39] VITALS: BP 143/84; PULSE 64; RESP 14; O2SAT 97
== END 2023-11-26 20:32 | disposition home or self-care (01) ==
PROVIDERS: Family Medicine; Emergency Provider Emergency Medicine; PCP Nurse Practitioner Family
DX: S06.6XAA Traumatic subarachnoid hemorrhage with loss of consciousness status unknown, initial encounter (principal); Z79.02 Long term (current) use of antithrombotics/antiplatelets; Z79.82 Long term (current) use of aspirin; F17.210 Nicotine dependence, cigarettes, uncomplicated; I10 Essential (primary) hypertension; I25.10 Atherosclerotic heart disease of native coronary artery without angina pectoris; I25.2 Old myocardial infarction; W18.39XA Other fall on same level, initial encounter
CPT/HCPCS: 36415; 70450; 80053; 85025; 85610; 85730; 93005; 99284